=== PATIENT | male | born 1995 | race Hispanic/Latino ===

== ENCOUNTER 2019-02-18 00:29 | Emergency (ER) | payer SELFPAY ==
[2019-02-18] MEDS ORDERED: ASPIRIN PO ONE (01:41)
[2019-02-18] MEDS ORDERED: DUONEB *Not for PRN Use IH ONE (01:53)
[2019-02-18] MEDS ORDERED: SOLU-Medrol IV ONE (01:53)
[2019-02-18 02:03] LABS: Basophils # (Auto) 0.1 K/mm3 (0.0-0.1); Basophils % (Auto) 0.8 % (0.0-1.8); Eosinophils # (Auto) 0.1 K/mm3 (0.0-0.4); Eosinophils % (Auto) 0.4 % (0.0-4.3); Hematocrit 56.8 % (35.5-45.6); Hemoglobin 19.3 gm/dl (11.8-15.2); Lymphocytes # (Auto) 2.4 K/mm3 (1.2-5.4); Lymphocytes % (Auto) 14.7 % (13.4-35.0); Mean Corpuscular HGB Conc 34 % (32-34); Mean Corpuscular Volume 78 fl (84-94); Monocytes # (Auto) 1.2 K/mm3 (0.0-0.8); Monocytes % (Auto) 7.3 % (0.0-7.3); Platelet Count 320 K/mm3 (140-440); Red Blood Count 7.31 M/mm3 (3.65-5.03); Red Cell Distribution Width 15.7 % (13.2-15.2)
[2019-02-18 02:23] LABS: Alanine Aminotransferase 34 units/L (7-56); Albumin 4.4 g/dL (3.9-5); BUN/Creatinine Ratio 10; Blood Urea Nitrogen 13 mg/dL (9-20); Calcium 9.9 mg/dL (8.4-10.2); Hemolysis Index 67
[2019-02-18 02:48] LABS: Bilirubin,Urine NEG (Negative); Blood,Urine SM (Negative); Color,Urine Yellow (Yellow); Mucus,Urine FEW /HPF; Urobilinogen,Urine < 2.0 mg/dL (<2.0)
--- NOTE | 2019-02-18 02:53 | XRay Report ---
PROCEDURE: XR CHEST 1V AP TECHNIQUE: Chest radiograph single view. HISTORY: Chest Pain COMPARISONS: None . FINDINGS: Heart: Normal. Mediastinum/Vessels: Normal. Lungs/Pleural space: Normal. Bony thorax: No acute osseous abnormality. Life support devices: None. IMPRESSION: No acute cardiopulmonary abnormality. This document is electronically signed by Jenaro Kirkland MD., February 18 2019 02:51:34 AM ET
[2019-02-18 02:57] LABS: Amphetamine Screen,Urine PRESUMPTIVE NEGATIVE; Benzodiazepines Screen,Urine PRESUMPTIVE NEGATIVE; Cocaine Screen,Urine PRESUMPTIVE NEGATIVE; Methadone Screen,Urine PRESUMPTIVE NEGATIVE; Opiate Screen,Urine PRESUMPTIVE NEGATIVE
[2019-02-18 03:10] LABS: Protein,Urine >500 mg/dL (Negative)
[2019-02-18 03:14] LABS: Cannabinoid Screen,Urine PRESUMPTIVE POSITIVE
--- NOTE | 2019-02-18 05:35 | Emergency Department Report ---
ED General Adult HPI - General Chief complaint: Arrhythmia/Palpitations Stated complaint: RACING HEART RATE Time Seen by Provider: 02/18/19 01:30 Source: patient Mode of arrival: Ambulatory Limitations: No Limitations - History of Present Illness Initial comments: Patient is a 23-year-old white male with a history of morbid obesity who presents to the ED with complaint of acute onset persistent intermittent palpitations, dry cough and wheezing for the last 6 hours. Patient admits to drinking a lot of sodas especially "Coke" and spends most of his time at home sleeping. Patient states that he was resting when he started feeling persistent palpitations and "heart racing", and he got scared. Patient also states that his having shortness of breath thereafter. Patient admits to smoking less than half a pack a day of cigarettes daily. Patient also states that he has been taking medications for weight loss over the last 3 months. Patient denies chest pain, dizziness, diaphoresis, headache, change in vision, neck pain, nausea, vomiting, abdominal pain, sore throat, or back pain, fever and chills. MD Complaint: Heart racing, Palpitations, wheezing and cough -: Sudden, hour(s) (6) Location: chest Radiation: non-radiation Severity scale (0 -10): 0 Quality: dull Consistency: intermittent Improves with: none Worsens with: none Associated Symptoms: cough, shortness of breath. denies: confusion, chest pain, diaphoresis, fever/chills, headaches, loss of appetite, malaise, nausea/vomiting, rash, seizure, syncope, weakness, other - Related Data Previous Rx's Medication Instructions Recorded Last Taken Type ALBUTEROL Inhaler (OR & NICU) 1 puff IH Q6H PRN #1 inhalation 02/18/19 Unknown Rx [ProAir HFA Inhaler] Azithromycin [Zithromax Z-JAILENE] 250 mg PO DAILY #6 tablet 02/18/19 Unknown Rx Benzonatate [Tessalon Perles] 100 mg PO Q8HR #30 capsule 02/18/19 Unknown Rx Prednisone [predniSONE 10 mg 10 mg PO .TAPER #21 tab.ds.pk 02/18/19 Unknown Rx (6-Day Pack, 21 Tabs)] Allergies Allergy/AdvReac Type Severity Reaction Status Date / Time No Known Allergies Allergy Unverified 02/18/19 00:38 ED Review of Systems ROS: Stated complaint: RACING HEART RATE Other details as noted in HPI Comment: All other systems reviewed and negative Constitutional: denies: chills, fever Eyes: denies: eye pain, eye discharge, vision change ENT: denies: ear pain, throat pain Respiratory: cough, shortness of breath, wheezing Cardiovascular: palpitations. denies: chest pain Endocrine: no symptoms reported. denies: excessive sweating, flushing, intolerance to heat, increased hunger, increased thirst, increased urine, unexplained weight gain Gastrointestinal: denies: abdominal pain, nausea, diarrhea Genitourinary: denies: urgency, dysuria Musculoskeletal: denies: back pain, joint swelling, arthralgia Skin: denies: rash, lesions Neurological: denies: headache, weakness, paresthesias Psychiatric: denies: anxiety, depression Hematological/Lymphatic: denies: easy bleeding, easy bruising ED Past Medical Hx - Past Medical History Previous Medical History?: No - Surgical History Past Surgical History?: Yes Additional Surgical History: tonsilectomy, tubes in ears - Social History Smoking Status: Current Every Day Smoker Substance Use Type: Alcohol, Marijuana - Medications Home Medications: Home Medications Medication Instructions Recorded Confirmed Last Taken Type ALBUTEROL Inhaler (OR & NICU) 1 puff IH Q6H PRN #1 inhalation 02/18/19 Unknown Rx [ProAir HFA Inhaler] Azithromycin [Zithromax Z-JAILENE] 250 mg PO DAILY #6 tablet 02/18/19 Unknown Rx Benzonatate [Tessalon Perles] 100 mg PO Q8HR #30 capsule 02/18/19 Unknown Rx Prednisone [predniSONE 10 mg 10 mg PO .TAPER #21 tab.ds.pk 02/18/19 Unknown Rx (6-Day Pack, 21 Tabs)] ED Physical Exam - General Limitations: No Limitations General appearance: alert, in no apparent distress - Head Head exam: Present: atraumatic, normocephalic, normal inspection - Eye Eye exam: Present: normal appearance, PERRL, EOMI. Absent: scleral icterus, conjunctival injection, nystagmus Pupils: Present: normal accommodation - ENT ENT exam: Present: normal exam, normal orophraynx, mucous membranes moist, TM's normal bilaterally, normal external ear exam - Neck Neck exam: Present: normal inspection, full ROM. Absent: tenderness, lymphadenopathy - Respiratory Respiratory exam: Present: normal lung sounds bilaterally, wheezes (mildly diffuse wheezes throughout). Absent: respiratory distress, rales, rhonchi, chest wall tenderness, accessory muscle use, decreased breath sounds, prolonged expiratory - Cardiovascular Cardiovascular Exam: Present: regular rate, normal rhythm, normal heart sounds. Absent: systolic murmur, diastolic murmur, rubs, gallop - GI/Abdominal GI/Abdominal exam: Present: soft, normal bowel sounds. Absent: guarding, rigid, hyperactive bowel sounds, hypoactive bowel sounds, organomegaly - Rectal Rectal exam: Present: deferred - Extremities Exam Extremities exam: Present: normal inspection, full ROM, normal capillary refill - Back Exam Back exam: Present: normal inspection, full ROM. Absent: tenderness, CVA tenderness (L), muscle spasm - Neurological Exam Neurological exam: Present: alert, oriented X3, CN II-XII intact, normal gait, reflexes normal - Psychiatric Psychiatric exam: Present: normal affect, normal mood, anxious - Skin Skin exam: Present: warm, dry, intact, normal color. Absent: rash ED Course Vital Signs 02/18/19 02/18/19 00:36 01:50 Temperature 97.8 F Pulse Rate 95 H 72 Respiratory 20 17 Rate Blood Pressure 196/101 Blood Pressure 149/93 [Left] O2 Sat by Pulse 100 99 Oximetry - Reevaluation(s) Reevaluation #1: 02/18/19 05:36 Patient is alert and oriented 3 and is not in distress. Patient is however hypertensive in triage. The initial EKG shows normal sinus rhythm with a ventricular rate of 73 bpm, and in no ST or T-wave abnormalities or pathological Q-waves. Laboratory results were reviewed and shows acute leukocytosis 16,300, and elevated plasma protein 8.5, as well as proteinuria greater than 500. This may be due to the weight loss medicine and the patient has been taking. Other lab test results are unremarkable including initial troponin and repeat troponin after 2 hours. CK levels are unremarkable. Repeat EKG shows normal sinus rhythm with ventricular rate of [address] or T-wave abnormalities. Chest x-ray shows no acute cardiopulmonary abnormalities. Urinalysis is unremarkable except for proteinuria and urine testing was positive for marijuana use. Our evaluation, patient's vital signs are stable with blood pressure significantly improved from the initial reading. Patient was treated in the ED with Solu- Medrol, DuoNeb and aspirin. Patient feeling much better, and the wheezing resolved. Patient discharged home on medications including albuterol inhaler, prednisone and patient is advised to cut down the highly pigmented drinks like sodas as the palpitations may have been caused by excess coffee and in his blood. Patient was advised to follow up with his primary care physician in 2-3 days for reevaluation. Patient also referred to the medical laboratory manager taxation consultant Dr. Black for follow-up. ED Medical Decision Making - Lab Data Result diagrams: 02/18/19 01:50 02/18/19 01:45 - EKG Data EKG shows normal: sinus rhythm Rate: normal - EKG Data Interpretation: normal EKG 02/18/19 05:43 Normal sinus rhythm with ventricular rate of 73 bpm, and no ST or T-wave abnormalities, or pathological Q waves. - Radiology Data Radiology results: report reviewed, image reviewed Chest x-ray shows no acute cardiopulmonary abnormalities - Medical Decision Making Patient is alert and oriented 3 and is not in distress. Patient is however hypertensive in triage. The initial EKG shows normal sinus rhythm with a ventr icular rate of 73 bpm, and in no ST or T-wave abnormalities or pathological Q- waves. Laboratory results were reviewed and shows acute leukocytosis 16,300, and elevated plasma protein 8.5, as well as proteinuria greater than 500. This may be due to the weight loss medicine and the patient has been taking. Other lab test results are unremarkable including initial troponin and repeat troponin after 2 hours. CK levels are unremarkable. Repeat EKG shows normal sinus rhythm with ventricular rate of [address] or T-wave abnormalities. Chest x-ray shows no acute cardiopulmonary abnormalities. Urinalysis is unremarkable except for proteinuria and urine testing was positive for marijuana use. Our evaluation, patient's vital signs are stable with blood pressure significantly improved from the initial reading. Patient was treated in the ED with Solu- Medrol, DuoNeb and aspirin. Patient feeling much better, and the wheezing resolved. Patient discharged home on medications including albuterol inhaler, prednisone and patient is advised to cut down the highly pigmented drinks like sodas as the palpitations may have been caused by excess coffee and in his blood. Patient was advised to follow up with his primary care physician in 2-3 days for reevaluation. Patient also referred to the medical laboratory manager taxation consultant Dr. Black for follow-up - Differential Diagnosis Palpitations, acute NC, Atrial fibrillation, Pneumonia, PE, Bronchitis Critical care attestation.: If time is entered above; I have spent that time in minutes in the direct care of this critically ill patient, excluding procedure time. ED Disposition Clinical Impression: Palpitations Acute bronchitis Qualifiers: Bronchitis organism: other organism Qualified Code(s): J20.8 - Acute bronchitis due to other specified organisms Disposition: TO HOME OR SELFCARE Is pt being admited?: No Does the pt Need Aspirin: No Condition: Stable Instructions: Acute Bronchitis (ED), Palpitations (ED) Additional Instructions: Take medications with food, drink plenty of fluids and follow-up with your [facility] physician in 2-3 days for reevaluation. Consider following up with the medical laboratory manager Dr. Black in 5 days for reevaluation and further testing. Return to the ED immediately if symptoms get worse. Prescriptions: Prednisone [predniSONE 10 mg (6-Day Pack, 21 Tabs)] 10 mg PO .TAPER #21 tab.ds.pk ALBUTEROL Inhaler (OR & NICU) [ProAir HFA Inhaler] 1 puff IH Q6H PRN #1 inhalation PRN Reason: Dyspnea Benzonatate [Tessalon Perles] 100 mg PO Q8HR #30 capsule Azithromycin [Zithromax Z-JAILENE] 250 mg PO DAILY #6 tablet Referrals: [facility] [Outside] - 3-5 Days GIRISH GAFFNEY MD [Staff Physician] - 3-5 Days Time of Disposition: 05:49 Print Language: [place] CITIZEN
[2019-02-18 06:14] VITALS: BP 155/111
== END 2019-02-18 06:00 | disposition home or self-care (01) ==
LOC: ED 00:29
DX: J20.8 Acute bronchitis due to other specified organisms (principal); R00.2 Palpitations; F17.210 Nicotine dependence, cigarettes, uncomplicated; F12.10 Cannabis abuse, uncomplicated; Z90.89 Acquired absence of other organs
CPT/HCPCS: 36415; 71045; 80053; 80307; 81001; 82550; 83880; 84484; 85025; 93005; 93010; 96374; 99284; J2930

== ENCOUNTER 2022-03-25 17:29 | Emergency (ER) | payer SELFPAY ==
[2022-03-25 17:37] VITALS: BP 156/86
--- NOTE | 2022-03-27 13:38 | Electrocardiograph Report ---
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
== END 2022-03-25 19:57 | disposition left against medical advice (07) ==
LOC: ED 17:29
DX: R06.02 Shortness of breath (principal); Z53.21 Procedure and treatment not carried out due to patient leaving prior to being seen by health care provider
CPT/HCPCS: 93005